=== PATIENT | female | born 1930 | race Caucasian/White ===

== ENCOUNTER 2017-08-10 14:46 | Inpatient (IN) | payer MEDICARE ==
[~2017-08-10] VITALS: Ht 157.5 cm; Wt 44.1 kg
[~2017-08-10 14:46] MED LIST: AMLO5TAB2 PO; ASPI-496 PO; ATEN50TA41 PO; CEFD300C37 PO; CLON0.3T47 PO; CRAN1TAB5 PO; DOXY100T10 PO; DOXY100T9 PO; EUCA30SO NAS; FURO-92 PO; FURO40TA6 PO; HYDR-3341 PO; HYDR-3342 PO; HYDR-3343 PO; ISOS20TA58 PO; LEVO25TA4 PO; LEVO50TA PO; LEVO50TA5 PO; LORA0.5T PO; LOSA50TA2 PO; LOSA50TA6 PO; MIRT15TA4 PO; MIRT30TA4 PO; MULT1TAB96 PO; OMEP40CA6 PO; OSEL75CA PO; OXYM30SP NAS; PHOS250T3 PO; POLY17PO3 PO; POLY17PO5 NG; POTA20TA14 PO; SENN-99 PO; SENN1TAB7 PO; TRAZ50TA18 PO; [UNRECOGNIZED DRUG - CODE] PO
[2017-08-10] MEDS ORDERED: SODIUM CHLORIDE 0.9% 1,000 ML IV ONE ×2 (14:57→16:48)
[2017-08-10] MEDS ORDERED: SODIUM CHLORIDE FLUSH 10ML SYR IVF ONE (15:00)
[2017-08-10] MEDS ORDERED: ISOS10TA2 PO (15:18)
[2017-08-10] MEDS ORDERED: CITA10TA4 PO (15:18)
[2017-08-10] MEDS ORDERED: NITR100C56 PO (15:18)
[2017-08-10 15:38] LABS: BASOPHILS # (AUTO) 0.01 x10^3/uL (0-0.1); BASOPHILS % (AUTO) 0 % (0-1); EOSINOPHILS # (AUTO) 0.01 x10^3/uL (0-0.4); EOSINOPHILS % (AUTO) 0 % (1-7); LYMPHOCYTES # (AUTO) 0.61 x10^3/uL (1-3.4); LYMPHOCYTES % (AUTO) 8 % (22-44); MD NO; MEAN CORPUSCULAR HGB CONC 33.1 g/dL (32.4-35.8); MEAN CORPUSCULAR VOLUME 87.4 fL (80-100); MEAN PLATELET VOLUME 8.3 fL (7.4-10.4); MONOCYTES # (AUTO) 0.43 x10^3/uL (0.2-0.8); MONOCYTES % (AUTO) 5 % (2-9); NEUTROPHILS % (AUTO) 87 % (42-75); PLATELET COUNT 268 x10^3/uL (130-400); RED BLOOD COUNT 4.46 x10^6/uL (3.82-5.3); RED CELL DISTRIBUTION WIDTH 15.1 % (9.6-15.2)
[2017-08-10 15:49] LABS: ALANINE AMINOTRANSFERASE 39 U/L (12-78); ANION GAP 8 mmol/L (5-15); CALCIUM 8.9 mg/dL (8.5-10.1); CHLORIDE 102 mmol/L (98-107); CREATININE 0.51 mg/dL (0.55-1.02)
[2017-08-10 15:51] LABS: ALKALINE PHOSPHATASE 108 U/L (45-117); BILIRUBIN,TOTAL 0.4 mg/dL (0.2-1.0); TOTAL PROTEIN 8.1 g/dL (6.4-8.2)
[2017-08-10 16:19] LABS: CULTURE INDICATED? YES; MICROSCOPIC INDICATED
[2017-08-10] MEDS ORDERED: AZITHROMYCIN 500 MG in SODIUM CHLORIDE 0.9% 250 ML IVPB ONE (17:00)
[2017-08-10] MEDS ORDERED: SODIUM CHLORIDE FLUSH 10ML SYR IVF PRN (17:00)
[2017-08-10] MEDS ORDERED: ENALAPRILAT 1.25 MG/ML, 2ML IVPush PRN (17:30)
[2017-08-10] MEDS ORDERED: GUAIFENESIN/DM 200-20MG, 10ML UDC PO PRN (17:30)
[2017-08-10] MEDS ORDERED: ACETAMINOPHEN 325 MG TABLET PO PRN (17:30)
[2017-08-10] MEDS: AZITHROMYCIN 500 MG in SODIUM CHLORIDE 0.9% 250 ML IV SCH (17:30)
[2017-08-10] MEDS: SODIUM CHLORIDE 0.9% 1,000 ML IV SCH ×2 (17:37→20:19)
[2017-08-10] MEDS ORDERED: hydrALAzine 20 MG/ML, 1ML ONE (17:39)
[2017-08-10] MEDS: hydrALAzine 20 MG/ML, 1ML IVPush PRN (17:45)
[2017-08-10 20:00] VITALS: BP 174/66
[2017-08-10] MEDS: LORazepam 1MG TABLET PO PRN (20:06)
[2017-08-10] MEDS: CEFTRIAXONE PMX 2GM/50ML 50 ML IV SCH (22:48)
[2017-08-10 23:10] VITALS: BP 174/67
[2017-08-10] MEDS: ISOSORBIDE DINITRATE 10 MG TABLET PO SCH (23:12)
[2017-08-10] MEDS: LOSARTAN 50MG TABLET PO SCH (23:13)
[2017-08-10] MEDS: ATENOLOL 50 MG TABLET PO SCH (23:14)
[2017-08-10] MEDS: ENOXAPARIN 40 MG/0.4 ML SQ SCH (23:15)
[2017-08-10] MEDS: TRAZODONE 50MG TABLET PO SCH (23:16)
[2017-08-11 01:13] VITALS: BP 133/62
[2017-08-11 03:07] VITALS: BP 174/66
[2017-08-11 05:33] LABS: BASOPHILS # (AUTO) 0.02 x10^3/uL (0-0.1); BASOPHILS % (AUTO) 0 % (0-1); CHLORIDE 102 mmol/L (98-107); EOSINOPHILS % (AUTO) 2 % (1-7); LYMPHOCYTES # (AUTO) 1.02 x10^3/uL (1-3.4); LYMPHOCYTES % (AUTO) 19 % (22-44); MD NO; MEAN CORPUSCULAR HEMOGLOBIN 29.5 pg (27.0-34.8); MEAN CORPUSCULAR HGB CONC 33.6 g/dL (32.4-35.8); MEAN CORPUSCULAR VOLUME 87.7 fL (80-100); MONOCYTES # (AUTO) 0.67 x10^3/uL (0.2-0.8); MONOCYTES % (AUTO) 12 % (2-9); NEUTROPHILS # (AUTO) 3.65 x10^3/uL (1.8-6.8); NEUTROPHILS % (AUTO) 67 % (42-75); PLATELET COUNT 213 x10^3/uL (130-400); RED BLOOD COUNT 3.81 x10^6/uL (3.82-5.3); RED CELL DISTRIBUTION WIDTH 14.7 % (9.6-15.2)
[2017-08-11 05:40] LABS: ALANINE AMINOTRANSFERASE 29 U/L (12-78); ALBUMIN 2.6 g/dL (3.4-5.0); ALKALINE PHOSPHATASE 91 U/L (45-117); ANION GAP 7 mmol/L (5-15); BILIRUBIN,TOTAL 0.4 mg/dL (0.2-1.0); CALCIUM 8.1 mg/dL (8.5-10.1); CREATININE 0.46 mg/dL (0.55-1.02); TOTAL PROTEIN 6.9 g/dL (6.4-8.2)
[2017-08-11] MEDS: LEVOTHYROXINE 25 MCG TABLET PO SCH (05:51)
[2017-08-11] MEDS: SODIUM CHLORIDE 0.9% 1,000 ML IV SCH ×2 (06:59→18:02)
[2017-08-11 08:00] VITALS: BP 190/72
[2017-08-11] MEDS ORDERED: SENNA/DOCUSATE TABLET PO SCH (09:00)
[2017-08-11] MEDS ORDERED: ASPIRIN 81 MG TABLET EC PO SCH (09:00)
[2017-08-11] MEDS: ATENOLOL 50 MG TABLET PO SCH ×2 (09:00→21:01)
[2017-08-11] MEDS: DOCUSATE 50 MG/5 ML, 10ML UDC PO SCH (10:32)
[2017-08-11] MEDS: SENNA 176 MG/5 ML ORAL SOL PO SCH (10:32)
[2017-08-11] MEDS: LOSARTAN 50MG TABLET PO SCH ×2 (10:35→21:01)
[2017-08-11] MEDS: AMLODIPINE 5 MG TABLET PO SCH (10:35)
[2017-08-11] MEDS: CITALOPRAM 10 MG TABLET PO SCH (10:35)
[2017-08-11] MEDS: ISOSORBIDE DINITRATE 10 MG TABLET PO SCH ×3 (10:35→21:02)
[2017-08-11] MEDS: ASPIRIN 81 MG TABLET CHEW PO SCH (10:35)
[2017-08-11 14:47] VITALS: BP 177/71
[2017-08-11] MEDS: AZITHROMYCIN 500 MG in SODIUM CHLORIDE 0.9% 250 ML IV SCH (18:02)
[2017-08-11 19:28] VITALS: BP 157/79
[2017-08-11] MEDS: TRAZODONE 50MG TABLET PO SCH (21:03)
[2017-08-11] MEDS: CEFTRIAXONE PMX 2GM/50ML 50 ML IV SCH (23:40)
[2017-08-11] MEDS: ENOXAPARIN 40 MG/0.4 ML SQ SCH (23:40)
[2017-08-12 01:19] VITALS: BP 170/77
[2017-08-12] MEDS: LEVOTHYROXINE 25 MCG TABLET PO SCH ×2 (05:23→05:25)
[2017-08-12] MEDS: SODIUM CHLORIDE 0.9% 1,000 ML IV SCH (05:23)
[2017-08-12 05:32] LABS: BASOPHILS # (AUTO) 0.01 x10^3/uL (0-0.1); BASOPHILS % (AUTO) 0 % (0-1); EOSINOPHILS # (AUTO) 0.09 x10^3/uL (0-0.4); EOSINOPHILS % (AUTO) 1 % (1-7); LYMPHOCYTES % (AUTO) 11 % (22-44); MD NO; MEAN CORPUSCULAR HEMOGLOBIN 29.5 pg (27.0-34.8); MEAN CORPUSCULAR HGB CONC 33.8 g/dL (32.4-35.8); MEAN CORPUSCULAR VOLUME 87.1 fL (80-100); MONOCYTES # (AUTO) 0.67 x10^3/uL (0.2-0.8); MONOCYTES % (AUTO) 10 % (2-9); NEUTROPHILS # (AUTO) 4.95 x10^3/uL (1.8-6.8); NEUTROPHILS % (AUTO) 77 % (42-75); PLATELET COUNT 204 x10^3/uL (130-400); RED CELL DISTRIBUTION WIDTH 14.9 % (9.6-15.2)
[2017-08-12 05:45] LABS: CHLORIDE 104 mmol/L (98-107)
[2017-08-12 05:52] LABS: ANION GAP 8 mmol/L (5-15); CALCIUM 8.3 mg/dL (8.5-10.1); CREATININE 0.31 mg/dL (0.55-1.02)
[2017-08-12] MEDS: LORazepam 1MG TABLET PO PRN (06:45)
[2017-08-12] MEDS: DOCUSATE 50 MG/5 ML, 10ML UDC PO SCH (07:50)
[2017-08-12 07:51] VITALS: BP 204/68
[2017-08-12] MEDS: ISOSORBIDE DINITRATE 10 MG TABLET PO SCH ×3 (07:51→20:56)
[2017-08-12] MEDS: LOSARTAN 50MG TABLET PO SCH ×2 (07:51→20:58)
[2017-08-12] MEDS: SENNA 176 MG/5 ML ORAL SOL PO SCH (07:51)
[2017-08-12] MEDS: ASPIRIN 81 MG TABLET CHEW PO SCH (07:51)
[2017-08-12] MEDS: AMLODIPINE 5 MG TABLET PO SCH (07:51)
[2017-08-12] MEDS: ATENOLOL 50 MG TABLET PO SCH ×2 (07:52→20:58)
[2017-08-12] MEDS: CITALOPRAM 10 MG TABLET PO SCH (07:52)
[2017-08-12] MEDS ORDERED: ENOXAPARIN 30 MG/0.3 ML SQ SCH (09:00)
[2017-08-12 13:15] VITALS: BP 184/86
[2017-08-12] MEDS: LORazepam 0.5MG TABLET PO SCH ×2 (13:18→20:57)
[2017-08-12] MEDS: AZITHROMYCIN 500 MG TABLET PO SCH (13:19)
[2017-08-12] MEDS: hydrALAzine 20 MG/ML, 1ML IVPush PRN (13:19)
[2017-08-12 14:25] VITALS: BP 143/66
[2017-08-12 19:02] VITALS: BP 161/71
[2017-08-12] MEDS: TRAZODONE 50MG TABLET PO SCH (20:57)
[2017-08-13 02:59] VITALS: BP 155/60
[2017-08-13 07:06] VITALS: BP 177/86
[2017-08-13] MEDS: AMLODIPINE 5 MG TABLET PO SCH (08:29)
[2017-08-13] MEDS: CITALOPRAM 10 MG TABLET PO SCH (08:29)
[2017-08-13] MEDS: LOSARTAN 50MG TABLET PO SCH (08:29)
[2017-08-13] MEDS: SENNA 176 MG/5 ML ORAL SOL PO SCH (08:29)
[2017-08-13] MEDS: DOCUSATE 50 MG/5 ML, 10ML UDC PO SCH (08:29)
[2017-08-13] MEDS: ASPIRIN 81 MG TABLET CHEW PO SCH (08:29)
[2017-08-13] MEDS: LEVOTHYROXINE 25 MCG TABLET PO SCH (08:30)
[2017-08-13] MEDS: ATENOLOL 50 MG TABLET PO SCH (08:30)
[2017-08-13] MEDS: ISOSORBIDE DINITRATE 10 MG TABLET PO SCH (08:30)
[2017-08-13] MEDS: LORazepam 0.5MG TABLET PO SCH (08:30)
[2017-08-13] MEDS: AZITHROMYCIN 500 MG TABLET PO SCH (08:31)
[2017-08-13] MEDS ORDERED: AZIT500T5 PO (10:29)
== END 2017-08-13 13:56 | DRG 70 ==
LOC: ED 16:47 → EDIP 16:48 → ED 17:27 → 4WST 18:18
PROVIDERS: ADMIT Internal Medicine; ATTEND Internal Medicine
PROC: 0T9B70Z Drainage of Bladder with Drainage Device, Via Natural or Artificial Opening (ICD-10-PCS; principal; 2017-08-10)
DX: G93.40 Encephalopathy, unspecified (principal); J15.9 Unspecified bacterial pneumonia; E46 Unspecified protein-calorie malnutrition; F03.90 Unspecified dementia, unspecified severity, without behavioral disturbance, psychotic disturbance, mood disturbance, and anxiety; N39.0 Urinary tract infection, site not specified; E87.1 Hypo-osmolality and hyponatremia; Z68.1 Body mass index [BMI] 19.9 or less, adult; W18.30XA Fall on same level, unspecified, initial encounter; I16.0 Hypertensive urgency; I10 Essential (primary) hypertension; Y95 Nosocomial condition; Z66 Do not resuscitate; J32.9 Chronic sinusitis, unspecified; E03.9 Hypothyroidism, unspecified; Y93.89 Activity, other specified; Y92.89 Other specified places as the place of occurrence of the external cause; Y99.8 Other external cause status; Z86.73 Personal history of transient ischemic attack (TIA), and cerebral infarction without residual deficits; Z88.1 Allergy status to other antibiotic agents; Z79.82 Long term (current) use of aspirin; Z79.899 Other long term (current) drug therapy; Z79.1 Long term (current) use of non-steroidal anti-inflammatories (NSAID)
CPT/HCPCS: 36415; 70450; 71045; 80048; 80053; 81001; 83605; 83735; 84100; 85025; 87040; 87086; 93005; 96365; J0456; J0696; J1650; J0360; J7030; J7050

== ENCOUNTER 2017-10-14 15:03 | Inpatient (IN) | payer MEDICARE ==
[~2017-10-14] VITALS: Ht 147.3 cm; Wt 38.9 kg
[~2017-10-14 15:03] MED LIST changes: +AZIT500T5 PO; +CITA10TA4 PO; +ISOS10TA2 PO; +NITR100C56 PO
[2017-10-14] MEDS ORDERED: SODIUM CHLORIDE 0.9% 1,000 ML IV ONE (15:06)
[2017-10-14 15:24] LABS: MEAN CORPUSCULAR HEMOGLOBIN 30.4 pg (27.0-34.8); MEAN CORPUSCULAR HGB CONC 33.7 g/dL (32.4-35.8); MEAN CORPUSCULAR VOLUME 90.2 fL (80-100); MEAN PLATELET VOLUME 8.4 fL (7.4-10.4); PLATELET COUNT 239 x10^3/uL (130-400); RED BLOOD COUNT 4.17 x10^6/uL (3.82-5.3); RED CELL DISTRIBUTION WIDTH 16.2 % (9.6-15.2)
[2017-10-14] MEDS ORDERED: PLEASE ENTER HEIGHT AND WEIGHT MC SCH (15:30)
[2017-10-14] MEDS ORDERED: SODIUM CHLORIDE FLUSH 10ML SYR IVF ONE (15:30)
[2017-10-14 15:32] LABS: ALANINE AMINOTRANSFERASE 28 U/L (12-78); ALBUMIN 3.1 g/dL (3.4-5.0); ANION GAP 9 mmol/L (5-15); CALCIUM 8.6 mg/dL (8.5-10.1); CHLORIDE 104 mmol/L (98-107); CREATININE 0.51 mg/dL (0.55-1.02)
[2017-10-14 15:34] LABS: ALKALINE PHOSPHATASE 110 U/L (45-117); BILIRUBIN,TOTAL 0.6 mg/dL (0.2-1.0); TOTAL PROTEIN 7.9 g/dL (6.4-8.2)
[2017-10-14 15:55] LABS: MD YES
[2017-10-14] MEDS ORDERED: METRONIDAZOLE PMX 500MG/100ML 100 ML ONE (15:57)
[2017-10-14 16:00] LABS: BAND#(MANUAL) 2.24 x10^3/uL; BANDS%(MANUAL) 13 % (0-7); LYMPH#(MANUAL) 0.52 x10^3/uL (1-3.4); LYMPHS% (MANUAL) 3 % (22-44); MONOS#(MANUAL) 0.69 x10^3/uL (0.3-2.7); MONOS% (MANUAL) 4 % (2-9); SEG#(MANUAL) 13.76 x10^3/uL (1.8-6.8); SEGS% (MANUAL) 80 % (42-75)
[2017-10-14] MEDS ORDERED: METRONIDAZOLE PMX 500MG/100ML 100 ML IV ONE (16:00)
[2017-10-14 16:01] LABS: <PLATELET ESTIMATE> ADEQUATE; <PLT MORPHOLOGY> NORMAL PLT MORPH; <RBC MORPHOLOGY> NORMAL
[2017-10-14] MEDS ORDERED: SODIUM CHLORIDE 0.9% 1,000 ML IV SCH (16:01)
[2017-10-14] MEDS ORDERED: LORazepam 0.5MG TABLET PO PRN (16:30)
[2017-10-14] MEDS ORDERED: ONDANSETRON 2MG/ML, 2ML IVPush PRN (16:30)
[2017-10-14] MEDS ORDERED: ENALAPRILAT 1.25 MG/ML, 2ML IVPush PRN (16:30)
[2017-10-14] MEDS ORDERED: ACETAMINOPHEN 325 MG TABLET PO PRN (16:30)
[2017-10-14] MEDS: ENOXAPARIN 30 MG/0.3 ML SQ SCH (18:01)
[2017-10-14 19:11] VITALS: BP 133/66
[2017-10-14] MEDS: metroNIDAZOLE 500 MG TABLET PO SCH (20:59)
[2017-10-14] MEDS: ATENOLOL 50 MG TABLET PO SCH (20:59)
[2017-10-14] MEDS: TRAZODONE 50MG TABLET PO SCH (20:59)
[2017-10-14] MEDS: NEUTRA PHOS K 250 MG TABLET PO SCH (20:59)
[2017-10-14] MEDS: [UNRECOGNIZED DRUG - OTHER] NAS SCH (21:00)
[2017-10-14] MEDS: LOSARTAN 50MG TABLET PO SCH (21:00)
[2017-10-14] MEDS: PEPPERMINT OIL NAS SCH (21:00)
[2017-10-14] MEDS: MIRTAZAPINE 30 MG TAB.RAPDIS PO SCH (21:00)
[2017-10-14] MEDS: ISOSORBIDE DINITRATE 20 MG TABLET PO SCH (21:18)
[2017-10-15 01:05] VITALS: BP 139/60
[2017-10-15 02:39] LABS: CLOSTRIDIUM DIFFICILE TOXIN NEGATIVE (Negative)
[2017-10-15 02:41] LABS: CLOSTRIDIUM DIFFICILE ANTIGEN POSITIVE
[2017-10-15 06:01] LABS: BASOPHILS # (AUTO) 0.02 x10^3/uL (0-0.1); BASOPHILS % (AUTO) 0 % (0-1); EOSINOPHILS # (AUTO) 0.02 x10^3/uL (0-0.4); EOSINOPHILS % (AUTO) 0 % (1-7); LYMPHOCYTES # (AUTO) 0.94 x10^3/uL (1-3.4); LYMPHOCYTES % (AUTO) 8 % (22-44); MD NO; MEAN CORPUSCULAR HEMOGLOBIN 30.6 pg (27.0-34.8); MEAN CORPUSCULAR HGB CONC 33.8 g/dL (32.4-35.8); MEAN CORPUSCULAR VOLUME 90.7 fL (80-100); MEAN PLATELET VOLUME 8.4 fL (7.4-10.4); MONOCYTES # (AUTO) 0.68 x10^3/uL (0.2-0.8); MONOCYTES % (AUTO) 6 % (2-9); NEUTROPHILS # (AUTO) 9.87 x10^3/uL (1.8-6.8); NEUTROPHILS % (AUTO) 86 % (42-75); PLATELET COUNT 189 x10^3/uL (130-400); RED BLOOD COUNT 3.46 x10^6/uL (3.82-5.3); RED CELL DISTRIBUTION WIDTH 15.9 % (9.6-15.2)
[2017-10-15 06:02] LABS: ANION GAP 7 mmol/L (5-15); CALCIUM 8.1 mg/dL (8.5-10.1); CHLORIDE 107 mmol/L (98-107); CREATININE 0.41 mg/dL (0.55-1.02)
[2017-10-15] MEDS: LEVOTHYROXINE 25 MCG TABLET PO SCH (06:04)
[2017-10-15 07:04] VITALS: BP 142/65
[2017-10-15] MEDS: PEPPERMINT OIL NAS SCH ×3 (09:00→21:00)
[2017-10-15] MEDS: [UNRECOGNIZED DRUG - OTHER] NAS SCH ×3 (09:00→21:00)
[2017-10-15] MEDS: NEUTRA PHOS K 250 MG TABLET PO SCH ×3 (10:04→21:00)
[2017-10-15] MEDS: CITALOPRAM 10 MG TABLET PO SCH (10:04)
[2017-10-15] MEDS: MULTIVITAMINS/MINERALS TABLET PO SCH (10:04)
[2017-10-15] MEDS: ASPIRIN 81 MG TABLET EC PO SCH (10:05)
[2017-10-15] MEDS: metroNIDAZOLE 500 MG TABLET PO SCH ×3 (10:05→21:00)
[2017-10-15] MEDS: ISOSORBIDE DINITRATE 20 MG TABLET PO SCH ×3 (10:05→21:00)
[2017-10-15] MEDS: ATENOLOL 50 MG TABLET PO SCH ×2 (10:05→21:00)
[2017-10-15] MEDS: AMLODIPINE 5 MG TABLET PO SCH (10:05)
[2017-10-15] MEDS: LOSARTAN 50MG TABLET PO SCH ×2 (10:05→21:00)
[2017-10-15 14:33] VITALS: BP 138/69
[2017-10-15] MEDS: ENOXAPARIN 30 MG/0.3 ML SQ SCH (18:00)
[2017-10-15 20:06] VITALS: BP 125/66
[2017-10-15] MEDS: TRAZODONE 50MG TABLET PO SCH (21:00)
[2017-10-15] MEDS: MIRTAZAPINE 30 MG TAB.RAPDIS PO SCH (21:00)
[2017-10-16 01:32] VITALS: BP 152/69
[2017-10-16 05:51] LABS: CHLORIDE 108 mmol/L (98-107)
[2017-10-16 05:56] LABS: ANION GAP 8 mmol/L (5-15); CALCIUM 8.9 mg/dL (8.5-10.1); CREATININE 0.46 mg/dL (0.55-1.02)
[2017-10-16] MEDS: LEVOTHYROXINE 25 MCG TABLET PO SCH (06:00)
[2017-10-16 06:38] LABS: MEAN CORPUSCULAR HEMOGLOBIN 30.6 pg (27.0-34.8); MEAN CORPUSCULAR HGB CONC 33.3 g/dL (32.4-35.8); MEAN CORPUSCULAR VOLUME 91.8 fL (80-100); MEAN PLATELET VOLUME 8.6 fL (7.4-10.4); PLATELET COUNT 225 x10^3/uL (130-400); RED BLOOD COUNT 4.16 x10^6/uL (3.82-5.3); RED CELL DISTRIBUTION WIDTH 16.4 % (9.6-15.2)
[2017-10-16 06:40] LABS: BASOPHILS # (AUTO) 0.03 x10^3/uL (0-0.1); BASOPHILS % (AUTO) 0 % (0-1); EOSINOPHILS # (AUTO) 0.02 x10^3/uL (0-0.4); EOSINOPHILS % (AUTO) 0 % (1-7); LYMPHOCYTES # (AUTO) 0.65 x10^3/uL (1-3.4); LYMPHOCYTES % (AUTO) 10 % (22-44); MD SCAN; MONOCYTES # (AUTO) 0.51 x10^3/uL (0.2-0.8); MONOCYTES % (AUTO) 7 % (2-9); NEUTROPHILS % (AUTO) 82 % (42-75)
[2017-10-16 08:42] VITALS: BP 165/66
[2017-10-16] MEDS: FUROSEMIDE 40 MG TABLET PO SCH (09:00)
[2017-10-16] MEDS: ISOSORBIDE DINITRATE 20 MG TABLET PO SCH ×3 (09:00→21:00)
[2017-10-16] MEDS: ATENOLOL 50 MG TABLET PO SCH ×2 (09:00→21:00)
[2017-10-16] MEDS: ASPIRIN 81 MG TABLET EC PO SCH (09:00)
[2017-10-16] MEDS: [UNRECOGNIZED DRUG - OTHER] NAS SCH ×3 (09:00→21:00)
[2017-10-16] MEDS: POTASSIUM CHLORIDE 20 MEQ TAB.ER.PRT PO SCH (09:00)
[2017-10-16] MEDS: LOSARTAN 50MG TABLET PO SCH ×2 (09:00→21:00)
[2017-10-16] MEDS: CITALOPRAM 10 MG TABLET PO SCH (09:00)
[2017-10-16] MEDS: AMLODIPINE 5 MG TABLET PO SCH (09:00)
[2017-10-16] MEDS: NEUTRA PHOS K 250 MG TABLET PO SCH ×3 (09:00→21:00)
[2017-10-16] MEDS: MULTIVITAMINS/MINERALS TABLET PO SCH (09:00)
[2017-10-16] MEDS: PEPPERMINT OIL NAS SCH ×3 (09:00→21:00)
[2017-10-16] MEDS: VANCOMYCIN 50 MG/ML ORAL SUSP PO SCH ×3 (11:55→23:00)
[2017-10-16 13:02] VITALS: BP 130/69
[2017-10-16] MEDS: ENOXAPARIN 30 MG/0.3 ML SQ SCH (17:16)
[2017-10-16 18:54] VITALS: BP 166/75
[2017-10-16] MEDS: MIRTAZAPINE 30 MG TAB.RAPDIS PO SCH (21:00)
[2017-10-16] MEDS: TRAZODONE 50MG TABLET PO SCH (21:00)
[2017-10-17 01:57] VITALS: BP 172/72
[2017-10-17] MEDS: VANCOMYCIN 50 MG/ML ORAL SUSP PO SCH ×3 (05:00→19:11)
[2017-10-17 05:47] LABS: BASOPHILS # (AUTO) 0.01 x10^3/uL (0-0.1); BASOPHILS % (AUTO) 0 % (0-1); EOSINOPHILS # (AUTO) 0.03 x10^3/uL (0-0.4); EOSINOPHILS % (AUTO) 1 % (1-7); LYMPHOCYTES # (AUTO) 0.62 x10^3/uL (1-3.4); LYMPHOCYTES % (AUTO) 12 % (22-44); MD NO; MEAN CORPUSCULAR HEMOGLOBIN 30.5 pg (27.0-34.8); MEAN CORPUSCULAR HGB CONC 33.8 g/dL (32.4-35.8); MEAN CORPUSCULAR VOLUME 90.2 fL (80-100); MEAN PLATELET VOLUME 8.5 fL (7.4-10.4); MONOCYTES % (AUTO) 10 % (2-9); NEUTROPHILS # (AUTO) 3.95 x10^3/uL (1.8-6.8); NEUTROPHILS % (AUTO) 77 % (42-75); PLATELET COUNT 210 x10^3/uL (130-400); RED BLOOD COUNT 4.13 x10^6/uL (3.82-5.3); RED CELL DISTRIBUTION WIDTH 16.4 % (9.6-15.2)
[2017-10-17 05:52] LABS: ANION GAP 10 mmol/L (5-15); CALCIUM 7.8 mg/dL (8.5-10.1); CHLORIDE 104 mmol/L (98-107); CREATININE 0.38 mg/dL (0.55-1.02)
[2017-10-17] MEDS: LEVOTHYROXINE 25 MCG TABLET PO SCH (06:00)
[2017-10-17 07:12] VITALS: BP 167/72
[2017-10-17] MEDS ORDERED: POTASSIUM CHLORIDE 40 MEQ in SODIUM CHLORIDE 0.9% 500 ML IV ONE (07:30)
[2017-10-17] MEDS: CITALOPRAM 10 MG TABLET PO SCH (08:33)
[2017-10-17] MEDS: PEPPERMINT OIL NAS SCH ×3 (08:33→21:00)
[2017-10-17] MEDS: [UNRECOGNIZED DRUG - OTHER] NAS SCH ×3 (08:33→21:00)
[2017-10-17] MEDS: NEUTRA PHOS K 250 MG TABLET PO SCH ×3 (08:34→21:49)
[2017-10-17] MEDS: LOSARTAN 50MG TABLET PO SCH ×2 (08:34→21:45)
[2017-10-17] MEDS: ATENOLOL 50 MG TABLET PO SCH ×2 (08:34→21:39)
[2017-10-17] MEDS: MULTIVITAMINS/MINERALS TABLET PO SCH (08:34)
[2017-10-17] MEDS: ASPIRIN 81 MG TABLET EC PO SCH (08:34)
[2017-10-17] MEDS: ISOSORBIDE DINITRATE 20 MG TABLET PO SCH ×3 (08:34→21:45)
[2017-10-17] MEDS: AMLODIPINE 5 MG TABLET PO SCH (08:34)
[2017-10-17 15:10] VITALS: BP 171/76
[2017-10-17] MEDS: ENOXAPARIN 30 MG/0.3 ML SQ SCH (18:00)
[2017-10-17 19:00] VITALS: BP 171/64
[2017-10-17] MEDS: LACTOBACILLUS 1GM/ PACKET PO SCH ×2 (19:11→21:48)
[2017-10-17] MEDS: TRAZODONE 50MG TABLET PO SCH (21:41)
[2017-10-17] MEDS: MIRTAZAPINE 30 MG TAB.RAPDIS PO SCH (21:43)
[2017-10-18] MEDS: VANCOMYCIN 50 MG/ML ORAL SUSP PO SCH ×4 (01:31→21:03)
[2017-10-18 01:46] VITALS: BP 145/81
[2017-10-18] MEDS: LEVOTHYROXINE 25 MCG TABLET PO SCH (06:00)
[2017-10-18 06:03] LABS: CHLORIDE 103 mmol/L (98-107)
[2017-10-18 06:07] LABS: ANION GAP 9 mmol/L (5-15)
[2017-10-18] MEDS ORDERED: POTASSIUM CHLORIDE 40 MEQ in SODIUM CHLORIDE 0.9% 500 ML IV ONE (07:30)
[2017-10-18 08:20] VITALS: BP 156/63
[2017-10-18] MEDS: CITALOPRAM 10 MG TABLET PO SCH (08:36)
[2017-10-18] MEDS: LOSARTAN 50MG TABLET PO SCH ×2 (08:36→21:04)
[2017-10-18] MEDS: ATENOLOL 50 MG TABLET PO SCH ×2 (08:36→21:04)
[2017-10-18] MEDS: AMLODIPINE 5 MG TABLET PO SCH (08:36)
[2017-10-18] MEDS: [UNRECOGNIZED DRUG - OTHER] NAS SCH ×3 (08:39→21:05)
[2017-10-18] MEDS: PEPPERMINT OIL NAS SCH ×3 (08:39→21:05)
[2017-10-18] MEDS: ISOSORBIDE DINITRATE 20 MG TABLET PO SCH ×3 (08:40→21:03)
[2017-10-18] MEDS: ASPIRIN 81 MG TABLET EC PO SCH (08:40)
[2017-10-18] MEDS: LACTOBACILLUS 1GM/ PACKET PO SCH ×3 (08:40→21:05)
[2017-10-18] MEDS: NEUTRA PHOS K 250 MG TABLET PO SCH ×3 (08:40→21:08)
[2017-10-18] MEDS: MULTIVITAMINS/MINERALS TABLET PO SCH (08:40)
[2017-10-18 15:07] VITALS: BP 145/67
[2017-10-18] MEDS: ENOXAPARIN 30 MG/0.3 ML SQ SCH (18:00)
[2017-10-18] MEDS: MIRTAZAPINE 30 MG TAB.RAPDIS PO SCH (21:04)
[2017-10-18] MEDS: TRAZODONE 50MG TABLET PO SCH (21:04)
[2017-10-18 22:15] VITALS: BP 106/79
[2017-10-19] MEDS: VANCOMYCIN 50 MG/ML ORAL SUSP PO SCH ×3 (02:09→14:52)
[2017-10-19 02:32] VITALS: BP 129/64
[2017-10-19] MEDS: LEVOTHYROXINE 25 MCG TABLET PO SCH (06:03)
[2017-10-19 08:07] VITALS: BP 165/62
[2017-10-19] MEDS: [UNRECOGNIZED DRUG - OTHER] NAS SCH ×2 (09:00→16:00)
[2017-10-19] MEDS: NEUTRA PHOS K 250 MG TABLET PO SCH ×2 (09:00→16:00)
[2017-10-19] MEDS: LACTOBACILLUS 1GM/ PACKET PO SCH ×2 (09:00→16:00)
[2017-10-19] MEDS: POTASSIUM CHLORIDE 20 MEQ TAB.ER.PRT PO SCH (09:00)
[2017-10-19] MEDS: FUROSEMIDE 40 MG TABLET PO SCH (09:00)
[2017-10-19] MEDS: PEPPERMINT OIL NAS SCH ×2 (09:00→16:00)
[2017-10-19] MEDS: CITALOPRAM 10 MG TABLET PO SCH (09:50)
[2017-10-19] MEDS: ATENOLOL 50 MG TABLET PO SCH (09:50)
[2017-10-19] MEDS: LOSARTAN 50MG TABLET PO SCH (09:51)
[2017-10-19] MEDS: ISOSORBIDE DINITRATE 20 MG TABLET PO SCH ×2 (09:51→16:00)
[2017-10-19] MEDS: ASPIRIN 81 MG TABLET EC PO SCH (09:51)
[2017-10-19] MEDS: AMLODIPINE 5 MG TABLET PO SCH (09:51)
[2017-10-19] MEDS: MULTIVITAMINS/MINERALS TABLET PO SCH (09:52)
[2017-10-19 10:48] LABS: ANION GAP 8 mmol/L (5-15); CALCIUM 8.1 mg/dL (8.5-10.1); CHLORIDE 105 mmol/L (98-107); CREATININE 0.53 mg/dL (0.55-1.02)
[2017-10-19] MEDS ORDERED: POTASSIUM CHLORIDE 20 MEQ PACKET PO SCH (11:00)
[2017-10-19 13:36] VITALS: BP 136/76
[2017-10-19] MEDS ORDERED: VANC1VIA3 PO (13:49)
[2017-10-19] MEDS ORDERED: POTA20PA25 PO (13:49)
[2017-10-19] MEDS ORDERED: ACET325T14 PO (13:49)
[2017-10-19] MEDS ORDERED: ENOX30SY4 SQ (13:49)
[2017-10-19] MEDS ORDERED: ACID1GRA3 PO (13:49)
== END 2017-10-19 16:50 | DRG 372 ==
LOC: ED 15:43 → EDIP 15:44 → ED 16:00 → 3NE 16:53
PROVIDERS: ADMIT Internal Medicine; ATTEND Internal Medicine
DX: A04.72 Enterocolitis due to Clostridium difficile, not specified as recurrent (principal); E44.0 Moderate protein-calorie malnutrition; E87.1 Hypo-osmolality and hyponatremia; D63.8 Anemia in other chronic diseases classified elsewhere; E86.0 Dehydration; Z68.1 Body mass index [BMI] 19.9 or less, adult; I11.9 Hypertensive heart disease without heart failure; R73.9 Hyperglycemia, unspecified; E03.9 Hypothyroidism, unspecified; E78.5 Hyperlipidemia, unspecified; E87.6 Hypokalemia; F03.90 Unspecified dementia, unspecified severity, without behavioral disturbance, psychotic disturbance, mood disturbance, and anxiety; F41.1 Generalized anxiety disorder; Z66 Do not resuscitate; Z82.49 Family history of ischemic heart disease and other diseases of the circulatory system; Z86.73 Personal history of transient ischemic attack (TIA), and cerebral infarction without residual deficits; Z87.891 Personal history of nicotine dependence
CPT/HCPCS: 36415; 80048; 80053; 83735; 84100; 85025; 87324; 87493; 99285; J1650; J3370; J3480; J7030; J7040